=== PATIENT | female | born 1990 | race Caucasian/White ===

== ENCOUNTER → 2018-11-13 | Outpatient (CLI) | payer OTHER ==
--- NOTE | 2018-11-14 12:30 | USB ---
Reason for exam: clinical finding. History: Family history of breast cancer in mother at age 41 and breast cancer in maternal grandmother at age 61. Physical Findings: Nurse Summary: 1 cm movable tender firm nodular lesion at 11 o'clock. US Breast BILAT Left complete breast ultrasound includes all four quadrants, the retroareolar region and axilla. Finding demonstrates a 0.6 x 0.2 x 0.4 cm cystic lesion at 12 o'clock, a 0.5 x 0.2 x 0.5 to small to characterize lesion at 9 o'clock, a 0.2 x 0.2 x 0.3 to small to characterize lesion at 6 o'clock, and a 0.3 x 0.2 x 0.3 to small to characterize lesion at 11 o'clock. Right complete breast ultrasound includes all four quadrants, the retroareolar region and axilla. Finding demonstrates a 1.4 x 0.9 x 1.7 cm oval well circumscribed solid hypoechoic lesion probably a fibroadenoma, but because of family history, size and palpable lesion it is advised to be sampled. These results were verbally communicated with the patient and result sheet given to the patient on 11/13/18. ASSESSMENT: Suspicious, BI-RAD 4 RECOMMENDATION: Ultrasound core biopsy of the right breast. Spoke with Dr. Flaherty directly - Will order procedure and follow up with patient to give results. Procedure scheduled per patient request on Tuesday11/27/18 at 12:20 Right breast Ultrasound core. The procedure was reviewed with the patient.
== END | disposition home or self-care (01) ==
LOC: RADUSWWP 09:00
PROVIDERS: ATTEND Family Medicine
DX: N63.11 Unspecified lump in the right breast, upper outer quadrant (principal); N63.20 Unspecified lump in the left breast, unspecified quadrant

== ENCOUNTER → 2018-11-27 | Day surgery (SDC) | payer OTHER ==
[2018-11-27 11:32] VITALS: RESP 16; BMI 18.8
[2018-11-27 13:40] VITALS: BP 127/81; PULSE 64; TEMP 97.6
--- NOTE | 2018-11-27 15:23 | USB ---
EXAMINATION TYPE: US biopsy breast VAD RT DATE OF EXAM: 11/27/2018 CLINICAL HISTORY: 28-year-old female right Breast lump/mass N63. Family history of breast cancer in m other. TECHNIQUE: Ultrasound guided core biopsy of the right breast. COMPARISON: Ultrasound 11/13/2018 FINDINGS: The procedure of ultrasound guided core biopsy was explained to the patient. Benefits, alt ernatives, and risks were discussed. An informed consent was then obtained. The solid mass in the 11:00 periareolar right breast mass is identified. It measures 2.1 x 1.4 x 0.9 cm and is targeted for biopsy. The patient was placed in supine positioning for imaging and for the procedure. The overlying skin w as prepped and draped in usual sterile fashion. Lidocaine buffered with bicarbonate was used as anes thetic into the skin and subcutaneous tissue up to area of concern in the right breast. Under ultrasound guidance, a 13-gauge vacuum-assisted Mammotome Elite biopsy gun device was used to o btain 4 core samples. Following this, a wing clip was left in lesion. Post procedure mammogram was deferred due to the patient's young age. The patient tolerated the procedure well without any immediate complication. The patient was kept in the radiology department for short stay after the procedure and then discharged home in stable condi tion. IMPRESSION: Successful, uncomplicated ultrasound guided core biopsy of area of concern in the 11:00 right breast, probable fibroadenoma. Full pathology results to follow.
== END | disposition home or self-care (01) ==
LOC: RADUSWWP 11:15
PROVIDERS: ATTEND Family Medicine
DX: D24.1 Benign neoplasm of right breast (principal); Z80.3 Family history of malignant neoplasm of breast
CPT/HCPCS: 88305; 19083; A4648; J2001